=== PATIENT | female | born 1935 | race American Indian/Alaskan Native ===

== ENCOUNTER 2017-10-23 13:13 | Emergency (ER) | payer MEDICARE ==
--- NOTE | 2017-10-23 17:05 | Event Note ---
Date: 10/23/17 Patient is an 82-year-old female fell down and tripped today complaints of headache was sent over from her PCP for low blood pressure and had pain. I will order CT head and recheck blood pressure.
--- NOTE | 2017-10-23 17:35 | Cat Scan Report ---
FINAL REPORT EXAM: CT HEAD/BRAIN WO CON HISTORY: head pain TECHNIQUE: CT examination of the head without IV contrast PRIORS: None. FINDINGS: No acute air-fluid level visualized in the included air-filled sinuses. Bone windows demonstrate no acute fracture. There is ventricular and sulcal prominence compatible with global cerebrocortical atrophy. Low attenuation regions in the cerebral white matter, while nonspecific, are present and usually attributed to chronic ischemic gliosis. It can occur secondary to the normal aging process, hypertension, or arterial sclerotic vascular disease. The differential includes demyelination in the appropriate clinical setting. The brain contains no mass, mass effect, hemorrhage, or acute infarct. There is no extra-axial intracranial bleed or brain bleed. There is no midline shift. CSF density lesions in the anterior aspect and posterior aspect of the right basal ganglia, left caudate head, left external capsule, right external capsule, as well as lateral aspect of the left basal ganglia are most compatible with chronic lacunar infarcts. Largest is in the anterior right basal ganglia. IMPRESSION: No acute CVA, intracranial bleed, or brain mass CSF density lesions most compatible with chronic lacunar infarcts bilaterally
--- NOTE | 2017-10-23 19:11 | Emergency Department Report ---
ED Fall HPI - General Chief Complaint: Fall Stated Complaint: LOW BLOOD PRESSURE Time Seen by Provider: 10/23/17 18:28 Source: patient Mode of arrival: Wheelchair - History of Present Illness Initial Comments: This is a 82 y.o. female that presents with a knot on left side of head from a fall last week. Patient reports falling last Sunday at home. She went to get her hair done the next day and no one noticed a bump on her head. She was coming hair and noticed something felt different. Her daughter thought it would be smart to f/u with someone and brought her in here. Denies LOC, lightheadedness, SOB, chest pain, numbness, and tingling. She can feel pain with touch but other than that, it is unnoticeable. Complaint: fall -: week(s) (1) Fall From: standing When Fall Occurred: # days [employer] (6) Fall Witnessed: no Place Fall Occurred: home Loss of Consciousness: none Prolonged Down Time?: no Symptoms Prior to Fall: none Location: head (left front side) Severity: mild Severity scale (0 -10): 2 Quality: aching (to touch) Context: tripped/slipped Associated Symptoms: denies - Related Data Home Medications Medication Instructions Recorded Confirmed Last Taken Furosemide 40 mg PO DAILY 07/18/13 12/15/15 12/14/15 Lisinopril 20 mg PO DAILY 07/18/13 12/15/15 12/14/15 Trazodone HCl [traZODone] 50 mg PO QDAY 07/18/13 12/15/15 12/14/15 Previous Rx's Medication Instructions Recorded Last Taken Type Aspirin EC [Aspirin Enteric Coated 81 mg PO QDAY #15 tablet 12/18/15 Unknown Rx TAB] Carvedilol [Coreg] 12.5 mg PO BID #30 tablet 12/18/15 Unknown Rx Hydralazine HCl [Apresoline TAB] 50 mg PO Q8HR #45 tab 12/18/15 Unknown Rx Pantoprazole [Protonix TAB] 40 mg PO QDAY #15 tablet 12/18/15 Unknown Rx Simvastatin [Zocor TAB] 20 mg PO QHS #15 tablet 12/18/15 Unknown Rx Spironolactone [Aldactone] 25 mg PO QDAY #15 tablet 12/18/15 Unknown Rx Allergies Allergy/AdvReac Type Severity Reaction Status Date / Time No Known Allergies Allergy Verified 12/14/15 17:42 ED Review of Systems ROS: Stated complaint: LOW BLOOD PRESSURE Other details as noted in HPI Constitutional: denies: chills, fever ENT: denies: ear pain, throat pain Respiratory: denies: cough, shortness of breath, wheezing Cardiovascular: denies: chest pain, palpitations Gastrointestinal: denies: abdominal pain, nausea, diarrhea Skin: other (tender bump on left side of head). denies: rash, lesions Neurological: denies: headache, weakness, paresthesias ED Past Medical Hx - Past Medical History Hx Hypertension: Yes Hx Heart Attack/AMI: Yes Hx Congestive Heart Failure: Yes Hx GERD: Yes Hx Liver Disease: No Hx Renal Disease: No Hx Sickle Cell Disease: No Hx Asthma: No Hx COPD: No Additional medical history: CHOLESTEROL - Surgical History Hx Internal Defibrillator: Yes Additional Surgical History: LEFT KNEE REPLACEMENT. HYSTERECTOMY. GLAUCOMA. - Social History Smoking Status: Never Smoker Substance Use Type: None - Medications Home Medications: Home Medications Medication Instructions Recorded Confirmed Last Taken Type Furosemide 40 mg PO DAILY 07/18/13 12/15/15 12/14/15 History Lisinopril 20 mg PO DAILY 07/18/13 12/15/15 12/14/15 History Trazodone HCl [traZODone] 50 mg PO QDAY 07/18/13 12/15/15 12/14/15 History Aspirin EC [Aspirin Enteric Coated 81 mg PO QDAY #15 tablet 12/18/15 Unknown Rx TAB] Carvedilol [Coreg] 12.5 mg PO BID #30 tablet 12/18/15 Unknown Rx Hydralazine HCl [Apresoline TAB] 50 mg PO Q8HR #45 tab 12/18/15 Unknown Rx Pantoprazole [Protonix TAB] 40 mg PO QDAY #15 tablet 12/18/15 Unknown Rx Simvastatin [Zocor TAB] 20 mg PO QHS #15 tablet 12/18/15 Unknown Rx Spironolactone [Aldactone] 25 mg PO QDAY #15 tablet 12/18/15 Unknown Rx ED Physical Exam - General Limitations: No Limitations - Head Head exam: Present: atraumatic, other (1 cm nodule, tender to touch on left lateral head) - Respiratory Respiratory exam: Present: normal lung sounds bilaterally. Absent: respiratory distress - Cardiovascular Cardiovascular Exam: Present: regular rate, normal rhythm. Absent: systolic murmur, diastolic murmur, rubs, gallop - GI/Abdominal GI/Abdominal exam: Present: soft, normal bowel sounds - Neurological Exam Neurological exam: Present: alert, oriented X3, normal gait - Skin Skin exam: Present: warm, dry, intact, normal color. Absent: rash ED Course Vital Signs 10/23/17 14:11 Temperature 98 F Pulse Rate 85 Respiratory 18 Rate Blood Pressure 110/68 O2 Sat by Pulse 97 Oximetry ED Medical Decision Making - Radiology Data Radiology results: report reviewed, image reviewed IMPRESSION: No acute CVA, intracranial bleed, or brain mass CSF density lesions most compatible with chronic lacunar infarcts bilaterally - Medical Decision Making This is a 82 y.o. female that presents with a bump to left side of head. History of migraines. Patient is stable and was examined by me. CT of head obtained and dictated by radiologist. Patient notified of results of benign cyst. Signs of distress noted. Given toradol, zofran, and normal saline 1L bolus once in ER. Follow up with PCP and have repeat CT in 6 months. Continue current medication for migraines. Patient can't recall the name. States will get refills from PCP. No further questions noted by the patient. Discharged home in stable condition. Follow up with PCP in 24-72 hours. Critical care attestation.: If time is entered above; I have spent that time in minutes in the direct care of this critically ill patient, excluding procedure time. ED Disposition Clinical Impression: Fall as cause of accidental injury at home as place of occurrence Qualifiers: Encounter type: initial encounter Qualified Code(s): W19.XXXA - Unspecified fall, initial encounter; Y92.009 - Unspecified place in unspecified non- institutional (private) residence as the place of occurrence of the external cause Contusion Qualifiers: Encounter type: initial encounter Contusion area: head Contusion of head detail : scalp Qualified Code(s): S00.03XA - Contusion of scalp, initial encounter Disposition: - TO HOME OR SELFCARE Is pt being admited?: No Does the pt Need Aspirin: No Condition: Stable Instructions: Scalp Contusion in Adults (ED), Fall Prevention for Older Adults (ED) Additional Instructions: Remove all area rugs to prevent risk of falling. Use walker or cane to aid in walking. Monitor size and color of hematoma on head. If it is getting larger or not changing in size, follow up with primary care provider or return to ER. Follow up with primary care provider in 2-3 days. [facility]] - 3-5 Days [facility] [Provider Group] - 3-5 Days [facility] [Provider Group] - 3-5 Days Time of Disposition: 19:21 Print Language: CAPE VERDEAN
[2017-10-23 19:31] VITALS: BP 114/88
== END 2017-10-23 19:30 | disposition home or self-care (01) ==
LOC: ED 13:13
DX: S00.03XA Contusion of scalp, initial encounter (principal); I11.0 Hypertensive heart disease with heart failure; I50.9 Heart failure, unspecified; K21.9 Gastro-esophageal reflux disease without esophagitis; I25.2 Old myocardial infarction; Z96.652 Presence of left artificial knee joint; Z90.710 Acquired absence of both cervix and uterus; W01.0XXA Fall on same level from slipping, tripping and stumbling without subsequent striking against object, initial encounter; Y93.89 Activity, other specified; Y99.8 Other external cause status; Y92.009 Unspecified place in unspecified non-institutional (private) residence as the place of occurrence of the external cause
CPT/HCPCS: 70450

== ENCOUNTER 2017-12-12 15:47 | Inpatient (IN) | payer MEDICARE ==
[2017-12-12] MEDS ORDERED: NACL 0.9% 500 ML 500 ML ONE (16:42)
[2017-12-12] MEDS ORDERED: NACL 0.9% 500 ML 500 ML IV ONE (16:43)
[2017-12-12 17:21] LABS: Basophils % (Auto) 0.5 % (0.0-1.8); Eosinophils % (Auto) 0.3 % (0.0-4.3); Hematocrit 44.2 % (30.3-42.9); Hemoglobin 14.8 gm/dl (10.1-14.3); Lymphocytes # (Auto) 0.8 K/mm3 (1.2-5.4); Lymphocytes % (Auto) 13.4 % (13.4-35.0); Mean Corpuscular HGB Conc 34 % (30-34); Mean Corpuscular Hemoglobin 31 pg (28-32); Mean Corpuscular Volume 93 fl (79-97); Monocytes # (Auto) 0.3 K/mm3 (0.0-0.8); Monocytes % (Auto) 4.5 % (0.0-7.3); Platelet Count 297 K/mm3 (140-440); Red Blood Count 4.76 M/mm3 (3.65-5.03); Red Cell Distribution Width 16.5 % (13.2-15.2)
[2017-12-12 17:30] LABS: INR 2.73 (0.87-1.13)
[2017-12-12 17:33] LABS: Calcium 8.4 mg/dL (8.4-10.2)
--- NOTE | 2017-12-12 18:11 | XRay Report ---
FINAL REPORT EXAM: XR CHEST 1V AP HISTORY: sob TECHNIQUE: Chest portable upright PRIORS: Comparison is December 14, 2015 FINDINGS: Left ICD/pacemaker again identified lead wires intact and unchanged in position. Sternotomy wires are noted. No confluent pulmonary infiltrate identified. No pleural fluid collection seen. Pulmonary vasculature is unremarkable IMPRESSION: Pacemaker/AICD No acute pulmonary findings
--- NOTE | 2017-12-12 18:19 | Emergency Department Report ---
ED General Adult HPI - General Chief complaint: Weakness Stated complaint: NOT FEELING WELL Time Seen by Provider: 12/12/17 16:26 Source: family Mode of arrival: Wheelchair Limitations: No Limitations - History of Present Illness Initial comments: Pt is a 82 yo female with dementia here for weakness that the daughter noted today. - Related Data Home Medications Medication Instructions Recorded Confirmed Last Taken Furosemide 40 mg PO DAILY 07/18/13 12/12/17 12/14/15 Trazodone HCl [traZODone] 50 mg PO DAILY 07/18/13 12/12/17 12/14/15 Albuterol Sulfate [Proventil Hfa] 6.7 gm PO Q6H PRN 12/05/17 12/12/17 Unknown Aspirin EC [Aspirin Enteric Coated 81 mg PO DAILY 12/05/17 12/12/17 Unknown TAB] Diclofenac Sodium [Voltaren] 2 gm TP QID 12/05/17 12/12/17 Unknown Fluticasone [Flonase] 50 mcg INHALATION BID PRN 12/05/17 12/12/17 Unknown ISOSORBIDE MONOnitrate [Imdur ER] 30 mg PO DAILY 12/05/17 12/12/17 Unknown Ipratropium/Albuterol Sulfate 3 ml PO Q6H 12/05/17 12/12/17 Unknown [DUONEB *Not for PRN Use*] Latanoprost 0.005% 1 drop OU QPM 12/05/17 12/12/17 Unknown Omeprazole 40 mg PO DAILY 12/05/17 12/12/17 Unknown Potassium Chloride [Klor-Con 10] 10 meq PO DAILY 12/05/17 12/12/17 Unknown Sacubitril/Valsartan [Entresto 24 24 - 26 mg PO BID 12/05/17 12/12/17 Unknown mg-26 mg Tablet] Simvastatin [Zocor] 40 mg PO DAILY 12/05/17 12/12/17 Unknown Warfarin Sodium [Coumadin] 2 - 2.5 mg PO DAILY 12/05/17 12/12/17 Unknown guaiFENesin [Guaifenesin] 300 mg PO TID PRN 12/05/17 12/12/17 Unknown Previous Rx's Medication Instructions Recorded Last Taken Type Carvedilol [Coreg] 12.5 mg PO BID #30 tablet 12/18/15 Unknown Rx Prednisone [predniSONE 10 mg 10 mg PO .TAPER #1 tab.ds.pk 12/09/17 Unknown Rx (6-Day Pack, 21 Tabs)] Allergies Allergy/AdvReac Type Severity Reaction Status Date / Time No Known Allergies Allergy Verified 12/12/17 15:57 ED Review of Systems ROS: Stated complaint: NOT FEELING WELL Other details as noted in HPI ED Past Medical Hx - Past Medical History Hx Hypertension: Yes Hx Heart Attack/AMI: Yes Hx Congestive Heart Failure: Yes Hx GERD: Yes Hx Liver Disease: No Hx Renal Disease: No Hx Sickle Cell Disease: No Hx Asthma: No Hx COPD: Yes Additional medical history: CHOLESTEROL - Surgical History Hx Pacemaker: Yes Hx Internal Defibrillator: Yes Hx Cholecystectomy: Yes Additional Surgical History: LEFT KNEE REPLACEMENT. HYSTERECTOMY. GLAUCOMA. - Social History Smoking Status: Former Smoker Substance Use Type: None - Medications Home Medications: Home Medications Medication Instructions Recorded Confirmed Last Taken Type Furosemide 40 mg PO DAILY 07/18/13 12/12/17 12/14/15 History Trazodone HCl [traZODone] 50 mg PO DAILY 07/18/13 12/12/17 12/14/15 History Carvedilol [Coreg] 12.5 mg PO BID #30 tablet 12/18/15 12/12/17 Unknown Rx Albuterol Sulfate [Proventil Hfa] 6.7 gm PO Q6H PRN 12/05/17 12/12/17 Unknown History Aspirin EC [Aspirin Enteric Coated 81 mg PO DAILY 12/05/17 12/12/17 Unknown History TAB] Diclofenac Sodium [Voltaren] 2 gm TP QID 12/05/17 12/12/17 Unknown History Fluticasone [Flonase] 50 mcg INHALATION BID PRN 12/05/17 12/12/17 Unknown History ISOSORBIDE MONOnitrate [Imdur ER] 30 mg PO DAILY 12/05/17 12/12/17 Unknown History Ipratropium/Albuterol Sulfate 3 ml PO Q6H 12/05/17 12/12/17 Unknown History [DUONEB *Not for PRN Use*] Latanoprost 0.005% 1 drop OU QPM 12/05/17 12/12/17 Unknown History Omeprazole 40 mg PO DAILY 12/05/17 12/12/17 Unknown History Potassium Chloride [Klor-Con 10] 10 meq PO DAILY 12/05/17 12/12/17 Unknown History Sacubitril/Valsartan [Entresto 24 24 - 26 mg PO BID 12/05/17 12/12/17 Unknown History mg-26 mg Tablet] Simvastatin [Zocor] 40 mg PO DAILY 12/05/17 12/12/17 Unknown History Warfarin Sodium [Coumadin] 2 - 2.5 mg PO DAILY 12/05/17 12/12/17 Unknown History guaiFENesin [Guaifenesin] 300 mg PO TID PRN 12/05/17 12/12/17 Unknown History Prednisone [predniSONE 10 mg 10 mg PO .TAPER #1 tab.ds.pk 12/09/17 12/12/17 Unknown Rx (6-Day Pack, 21 Tabs)] ED Physical Exam - General Limitations: No Limitations ED Course Vital Signs 12/12/17 12/12/17 12/12/17 15:57 16:07 16:16 Temperature 97.5 F L Pulse Rate 86 80 81 Respiratory 18 24 21 Rate Blood Pressure 60/30 85/55 85/55 Blood Pressure [Left] O2 Sat by Pulse 95 Oximetry 12/12/17 12/12/17 12/12/17 16:30 16:45 17:00 Temperature Pulse Rate 77 84 81 Respiratory 18 26 H 28 H Rate Blood Pressure 75/52 79/53 79/53 Blood Pressure [Left] O2 Sat by Pulse 95 93 Oximetry 12/12/17 12/12/17 12/12/17 17:15 17:30 17:45 Temperature Pulse Rate 80 78 75 Respiratory 25 H 26 H 24 Rate Blood Pressure 82/57 83/59 96/61 Blood Pressure [Left] O2 Sat by Pulse 92 90 92 Oximetry 12/12/17 12/12/17 12/12/17 18:08 18:15 18:22 Temperature Pulse Rate 81 73 Respiratory 14 18 18 Rate Blood Pressure 96/61 101/70 Blood Pressure [Left] O2 Sat by Pulse 90 88 95 Oximetry 12/12/17 12/12/17 12/12/17 18:30 18:45 19:00 Temperature Pulse Rate 76 75 74 Respiratory 16 24 16 Rate Blood Pressure 96/73 98/74 93/63 Blood Pressure [Left] O2 Sat by Pulse 91 90 Oximetry 12/12/17 19:15 Temperature 98.1 F Pulse Rate 83 Respiratory 12 Rate Blood Pressure Blood Pressure 98/62 [Left] O2 Sat by Pulse 91 Oximetry ED Medical Decision Making - Lab Data Result diagrams: 12/12/17 16:53 12/12/17 16:53 Critical care attestation.: If time is entered above; I have spent that time in minutes in the direct care of this critically ill patient, excluding procedure time. ED Disposition Clinical Impression: Dehydration, Weakness Disposition: [id number] OP ADMIT IP TO THIS HOSP Condition: Stable
--- NOTE | 2017-12-12 18:29 | Cat Scan Report ---
FINAL REPORT EXAM: CT HEAD/BRAIN WO CON HISTORY: weakness TECHNIQUE: CT head without contrast PRIORS: None. FINDINGS: No acute intra-axial or extra-axial hemorrhage is identified. There is no evidence of midline shift or mass effect. The ventricles and sulci are within normal limits. Bolanos-white matter differentiation is intact. No acute parenchymal abnormalities seen. There are patchy and confluent hypodensities within the supratentorial white matter. There more focal hypodensity within right basal ganglia consistent with infarct. Bony calvarium is grossly intact. Visualized portions of the mastoids and paranasal sinuses are unremarkable. IMPRESSION: Chronic small vessel white matter ischemic change and chronic ischemic changes with remote basal ganglia infarct on the right. No acute abnormality
[2017-12-12 22:38] LABS: Bacteria,Urine 2+ /HPF (Negative); Bilirubin,Urine NEG (Negative); Blood,Urine SM (Negative); Color,Urine Yellow (Yellow); Protein,Urine <15 mg/dL mg/dL (Negative); Urobilinogen,Urine < 2.0 mg/dL (<2.0)
--- NOTE | 2017-12-13 06:47 | Event Note ---
Date: 12/12/17 12/12/17 See dictated H/p in reports Hypotension
[2017-12-13] MEDS ORDERED: DUONEB *Not for PRN Use IH SCH (07:00)
[2017-12-13] MEDS ORDERED: NON-FORMULARY (Prednisone [Prednisone 10 Mg (6-Day Pack, 21 Tabs)] 10 MG) PO SCH (07:00)
[2017-12-13 07:26] LABS: Hemoglobin 15.6 gm/dl (10.1-14.3); Mean Corpuscular HGB Conc 33 % (30-34); Mean Corpuscular Hemoglobin 31 pg (28-32); Mean Corpuscular Volume 93 fl (79-97); Platelet Count 266 K/mm3 (140-440); Red Blood Count 5.07 M/mm3 (3.65-5.03); Red Cell Distribution Width 16.4 % (13.2-15.2)
--- NOTE | 2017-12-13 07:39 | History and Physical Report ---
CHIEF COMPLAINT: Weakness since morning. HISTORY OF PRESENT ILLNESS: The patient is an 82-year-old female who was brought in by daughter for severe weakness since morning. The patient states that she feels very weak. Not feeling well. No fever. In the ER, the patient was noted to have blood pressure of 60/30 with a temperature of 97.5. No fever, no chills. No shortness of breath. Just weakness and some occasional nausea. PAST MEDICAL HISTORY: Significant for hypertension, coronary artery disease, acute MD in the past, congestive heart failure, COPD and cholesterol. PAST SURGICAL HISTORY: Significant for left knee replacement, hysterectomy, glaucoma, internal defibrillator, currently had a cholecystectomy. SOCIAL HISTORY: Former smoker, stopped smoking many years ago. No substance abuse. FAMILY HISTORY: Significant for hypertension. CURRENT MEDICATIONS: On the chart. REVIEW OF SYSTEMS: Significant for feeling weak, very low blood pressure in the Emergency Room of 60/30. PHYSICAL EXAMINATION: GENERAL: Elderly female, lying comfortably in bed. VITAL SIGNS: Blood pressure 60/30 initially. Improved to 79/53 at the time of my examination. Pulse is 81, respirations are 28. HEENT: Unremarkable. Pupils equal and reactive. NECK: Supple, no lymphadenopathy, no thyromegaly. LUNGS: Clear to auscultation and percussion. Good air entry. CARDIOVASCULAR: S1, S2 heard. No gallop, no murmur, no rub. Apical impulse in left fifth intercostal space and midclavicular line. ABDOMEN: Soft and benign. No hepatosplenomegaly. No guarding, no rigidity. Hernial orifices are normal. EXTREMITIES: Good pedal pulses. No pedal edema. CENTRAL NERVOUS SYSTEM: Alert and oriented x 4, nonfocal exam. LABORATORY DATA: Significant for white count of 6300, hematocrit of 44.2, hemoglobin of 14.8, BUN and creatinine of 52 and 1.3. Sodium is 137. Urine wbc's 38. Lactic acid is 1.6, normal. Magnesium is 2.4. ASSESSMENT AND PLAN: 1. Hypotension, probably secondary to sepsis and urinary tract infection. IV fluids for now. The patient did not have hypotension before. 2. Sepsis, high possibility secondary to urinary tract infection because of the hypotension. Lactic acid is not high. IV Rocephin pending the blood cultures. 3. Congestive heart failure. Continue Entresto b.i.d. Hold Lasix for the time being. 4. Gastroesophageal reflux disease. Continue omeprazole or PPIs. 5. COPD. Continue DuoNeb. 6. Hypertension. We will hold the Coreg for the time being. 7. Anticoagulation. Continue Coumadin 2.5 daily. 8. Depression. Continue trazodone 50 mg daily. 9. Hyperlipidemia. Continue simvastatin 40 mg p.o. daily. 10. Deep venous thrombosis prophylaxis. Continue heparin 5000 q.12h. In summary, the patient has hypotension may be secondary to sepsis and urinary tract infection. Lactic acid is not high. Continue Rocephin pending cultures. JOB# [id number] VSOscar/NTS
[2017-12-13 07:50] LABS: Alanine Aminotransferase 7 units/L (7-56); Albumin 3.2 g/dL (3.9-5); BUN/Creatinine Ratio 54; Basophils % (Auto) 0.3 % (0.0-1.8); Blood Urea Nitrogen 43 mg/dL (7-17); Calcium 8.6 mg/dL (8.4-10.2); Eosinophils % (Auto) 0.5 % (0.0-4.3); Hemolysis Index 73; Lymphocytes # (Auto) 1.5 K/mm3 (1.2-5.4); Lymphocytes % (Auto) 17.2 % (13.4-35.0); Monocytes # (Auto) 0.3 K/mm3 (0.0-0.8); Monocytes % (Auto) 3.9 % (0.0-7.3)
--- NOTE | 2017-12-13 08:45 | Consultation ---
History of Present Illness - Reason for Consult Consult date: 12/13/17 acute renal failure - History of Present Illness The patient is a 82 YO AAF with medical history significant for HTN, CAD, COPD, GERD, CHF and Dementia who was brought into the ER by her daughter for evaluation of generalized weakness. Her initial BP was around 60/30 and the labs were significant for creatinine of 1.3. Patient was not able to provide any history and there was no family member at the bedside. BP and creatinine level are better today. Past History Past Medical History: acute MS, COPD, GERD, heart failure, hypertension, other ( dementia) Medications and Allergies Allergies Allergy/AdvReac Type Severity Reaction Status Date / Time No Known Allergies Allergy Verified 12/12/17 15:57 Home Medications Medication Instructions Recorded Confirmed Last Taken Type Furosemide 40 mg PO DAILY 07/18/13 12/12/17 12/14/15 History Trazodone HCl [traZODone] 50 mg PO DAILY 07/18/13 12/12/17 12/14/15 History Carvedilol [Coreg] 12.5 mg PO BID #30 tablet 12/18/15 12/12/17 Unknown Rx Albuterol Sulfate [Proventil Hfa] 6.7 gm PO Q6H PRN 12/05/17 12/12/17 Unknown History Aspirin EC [Aspirin Enteric Coated 81 mg PO DAILY 12/05/17 12/12/17 Unknown History TAB] Diclofenac Sodium [Voltaren] 2 gm TP QID 12/05/17 12/12/17 Unknown History Fluticasone [Flonase] 50 mcg INHALATION BID PRN 12/05/17 12/12/17 Unknown History ISOSORBIDE MONOnitrate [Imdur ER] 30 mg PO DAILY 12/05/17 12/12/17 Unknown History Ipratropium/Albuterol Sulfate 3 ml PO Q6H 12/05/17 12/12/17 Unknown History [DUONEB *Not for PRN Use*] Latanoprost 0.005% 1 drop OU QPM 12/05/17 12/12/17 Unknown History Omeprazole 40 mg PO DAILY 12/05/17 12/12/17 Unknown History Potassium Chloride [Klor-Con 10] 10 meq PO DAILY 12/05/17 12/12/17 Unknown History Sacubitril/Valsartan [Entresto 24 24 - 26 mg PO BID 12/05/17 12/12/17 Unknown History mg-26 mg Tablet] Simvastatin [Zocor] 40 mg PO DAILY 12/05/17 12/12/17 Unknown History Warfarin Sodium [Coumadin] 2 - 2.5 mg PO DAILY 12/05/17 12/12/17 Unknown History guaiFENesin [Guaifenesin] 300 mg PO TID PRN 12/05/17 12/12/17 Unknown History Prednisone [predniSONE 10 mg 10 mg PO .TAPER #1 tab.ds.pk 12/09/17 12/12/17 Unknown Rx (6-Day Pack, 21 Tabs)] Active Meds: Active Medications Acetaminophen (Tylenol) 650 mg PO Q4H PRN PRN Reason: Pain MILD(1-3)/Fever >100.5/PEREZ Albuterol/Ipratropium (Duoneb *Not For Prn Use*) 1 ampul IH Q6H MAXIMINO Aspirin (Halfprin Ec) 81 mg PO DAILY MAXIMINO Fluticasone Propionate (Flonase) 50 mcg NS BID PRN PRN Reason: Shortness Of Breath Furosemide (Lasix) 40 mg PO DAILY MAXIMINO Guaifenesin (Robitussin) 300 mg PO TID PRN PRN Reason: Cough Sodium Chloride (Nacl 0.9% 1000 Ml) 1,000 mls @ 100 mls/hr IV DIRECT MAXIMINO Ceftriaxone Sodium 2 gm/ (Sodium Chloride) 20 mls @ 20 mls/10 min IV Q24HR MAXIMINO ; Protocol Isosorbide Mononitrate (Imdur) 30 mg PO DAILY MAXIMINO Latanoprost (Latanoprost 0.005%) drops OU QPM MAXIMINO Miscellaneous Medication (Diclofenac Sodium [Voltaren]) 2 gm TP QID MAXIMINO Miscellaneous Medication (Omeprazole [Omeprazole]) 40 mg PO DAILY MAXIMINO Miscellaneous Medication (Potassium Chloride [Klor-Con 10]) 10 meq PO DAILY MAXIMINO Miscellaneous Medication (Prednisone [Prednisone 10 Mg (6-Day Pack, 21 Tabs)]) 10 mg PO .TAPER MAXIMINO Miscellaneous Medication (Sacubitril/Valsartan [Entresto 24 Mg-26 Mg Tablet]) 24 - 26 mg PO BID MAXIMINO Miscellaneous Medication (Simvastatin [Zocor]) 40 mg PO DAILY MAXIMINO Miscellaneous Medication (Trazodone Hcl [Trazodone]) 50 mg PO DAILY [facility] Morphine Sulfate (Morphine) 2 mg IV Q4H PRN PRN Reason: Pain, Moderate (4-6) Ondansetron HCl (Zofran) 4 mg IV Q8H PRN PRN Reason: Nausea And Vomiting Oxycodone/Acetaminophen (Percocet 5/325) 1 tab PO Q6H PRN PRN Reason: Pain, Moderate (4-6) Sodium Chloride (Sodium Chloride Flush Syringe 10 Ml) 10 ml IV BID MAXIMINO Sodium Chloride (Sodium Chloride Flush Syringe 10 Ml) 10 ml IV PRN PRN PRN Reason: LINE FLUSH Review of Systems ROS unobtainable: due to mental status Exam - Vital Signs Vital signs: Vital Signs Temp Pulse Resp BP Pulse Ox 97.5 F L 86 18 60/30 95 12/12/17 15:57 12/12/17 15:57 12/12/17 15:57 12/12/17 15:57 12/12/17 15:57 - General Appearance General appearance: well-developed, appears stated age, other (no distress) EENT: ATNC, PERRL, mucous membranes moist, hearing intact, vision intact Neck: Present: neck supple, trachea midline Respiratory: Clear to Ascultation Heart: regular, S1S2, no murmurs Gastrointestinal: Present: normoactive bowel sounds. Absent: tenderness, distended Integumentary: no rash, warm and dry Neurologic: no focal deficit, no asterixis, confused, disoriented Musculoskeletal: Present: other (no edema) Psychiatric: cooperative Results - Lab Results 12/13/17 07:00 12/13/17 07:00 Most recent lab results Calcium 8.6 mg/dL (8.4-10.2) 12/13/17 07:00 Magnesium 2.40 mg/dL (1.7-2.3) H 12/12/17 17:02 Assessment and Plan 1. Acute kidney injury: Hemodynamic HALLEY. Renal function is better. Continue IV fluids. Hold diuretics and ACEI / ARB for now. Avoid NSAIDs. 2. Hypotension: BP is better. 3. Volume depletion: Continue IV fluids. 4. Dementia.
[2017-12-13] MEDS ORDERED: MORPHINE IV PRN (09:00)
[2017-12-13] MEDS ORDERED: ROBITUSSIN PO PRN (09:30)
[2017-12-13] MEDS ORDERED: ZOFRAN IV PRN (09:30)
[2017-12-13] MEDS ORDERED: TYLENOL PO PRN (09:30)
[2017-12-13] MEDS ORDERED: SODIUM CHLORIDE FLUSH SYRINGE 10 ML IV PRN (09:30)
[2017-12-13] MEDS ORDERED: PERCOCET 5/325 PO PRN (09:30)
[2017-12-13] MEDS: HALFPRIN EC PO SCH (09:38)
[2017-12-13] MEDS: K-DUR PO SCH (09:38)
[2017-12-13] MEDS: SODIUM CHLORIDE FLUSH SYRINGE 10 ML IV SCH ×2 (09:39→22:59)
[2017-12-13] MEDS: NACL 0.9% 1000 ML 1,000 ML IV SCH ×2 (09:57→20:30)
[2017-12-13] MEDS: cefTRIAXone 2 GM in NACL 0.9% 20 ML IV SCH (09:57)
[2017-12-13] MEDS ORDERED: NON-FORMULARY (Simvastatin [Zocor] 40 MG) PO SCH (10:00)
[2017-12-13] MEDS ORDERED: NON-FORMULARY (Omeprazole [Omeprazole] 40 MG) PO SCH (10:00)
[2017-12-13] MEDS ORDERED: NON-FORMULARY (Potassium Chloride [Klor-Con 10] 10 MEQ) PO SCH (10:00)
[2017-12-13] MEDS ORDERED: LASIX PO SCH (10:00)
[2017-12-13] MEDS ORDERED: SACUBITRIL PO SCH (10:00)
[2017-12-13] MEDS ORDERED: FLONASE NS PRN (10:00)
[2017-12-13] MEDS ORDERED: DICLOFENAC SODIUM 2 GM TP SCH (10:00)
[2017-12-13] MEDS ORDERED: TRAZODONE HCL 50 MG PO SCH (10:00)
[2017-12-13] MEDS ORDERED: VALSARTAN PO SCH (10:00)
--- NOTE | 2017-12-13 10:24 | Progress Note ---
Assessment and Plan Assessment and plan: Sepsis. Continue follow-up blood and urine cultures. Etiology secondary to UTI. Follow-up lactic acid levels. UTI. As above. Sepsis associated hypotension. Resolving with IV fluid hydration. Compensated systolic and diastolic CHF. Recent echocardiogram on 12/05/17 revealed EF 25-30% with also abnormal left ventricular diastolic filling consistent with impaired relaxation. Continue cautious IV fluid hydration given heart failure history. Acute kidney injury. Etiology secondary to acute kidney injury from sepsis/ hypotension. Continue IV fluid hydration. Alzheimer's dementia. COPD. Compensated. Hypertension. Continue to hold antihypertensive medications considering the hypotension. Hyperlipidemia. Resume medications. History Interval history: No new issues overnight. Hospitalist Physical - Constitutional Vitals: Temp Pulse Resp BP Pulse Ox 98.4 F 84 18 108/76 93 12/13/17 07:22 12/13/17 10:00 12/13/17 07:22 12/13/17 07:22 12/13/17 07:22 General appearance: Present: no acute distress, well-nourished - EENT Eyes: Present: PERRL, EOM intact ENT: hearing intact, clear oral mucosa, dentition normal - Neck Neck: Present: supple, normal ROM - Respiratory Respiratory effort: normal Respiratory: bilateral: CTA - Cardiovascular Rhythm: regular Heart Sounds: Present: S1 & S2. Absent: gallop, rub - Extremities Extremities: no ischemia, No edema, Full ROM - Abdominal General gastrointestinal: soft, non-tender, non-distended, normal bowel sounds - Integumentary Integumentary: Present: clear, warm, dry - Neurologic Neurologic: CNII-XII intact, moves all extremities Results - Labs CBC & Chem 7: 12/13/17 07:00 12/13/17 07:00 Labs: Laboratory Last Values WBC 8.8 K/mm3 (4.5-11.0) 12/13/17 07:00 RBC 5.07 M/mm3 (3.65-5.03) H 12/13/17 07:00 Hgb 15.6 gm/dl (10.1-14.3) H 12/13/17 07:00 Hct 47.0 % (30.3-42.9) H 12/13/17 07:00 MCV 93 fl (79-97) 12/13/17 07:00 MCH 31 pg (28-32) 12/13/17 07:00 MCHC 33 % (30-34) 12/13/17 07:00 RDW 16.4 % (13.2-15.2) H 12/13/17 07:00 Plt Count 266 K/mm3 (140-440) 12/13/17 07:00 Lymph % (Auto) 17.2 % (13.4-35.0) 12/13/17 07:00 [place] % (Auto) 3.9 % (0.0-7.3) 12/13/17 07:00 Eos % (Auto) 0.5 % (0.0-4.3) 12/13/17 07:00 Baso % (Auto) 0.3 % (0.0-1.8) 12/13/17 07:00 Lymph # 1.5 K/mm3 (1.2-5.4) 12/13/17 07:00 Wells # 0.3 K/mm3 (0.0-0.8) 12/13/17 07:00 Eos # 0.0 K/mm3 (0.0-0.4) 12/13/17 07:00 Baso # 0.0 K/mm3 (0.0-0.1) 12/13/17 07:00 Seg Neutrophils % 78.1 % (40.0-70.0) H 12/13/17 07:00 Seg Neutrophils # 6.7 K/mm3 (1.8-7.7) 12/13/17 07:00 PT 30.8 Sec. (12.2-14.9) H 12/12/17 17:02 INR 2.73 (0.87-1.13) H 12/12/17 17:02 APTT 38.0 Sec. (24.2-36.6) H 12/12/17 17:02 Sodium 140 mmol/L (137-145) 12/13/17 07:00 Potassium 4.0 mmol/L (3.6-5.0) 12/13/17 07:00 Chloride 98.4 mmol/L (98-107) 12/13/17 07:00 Carbon Dioxide 29 mmol/L (22-30) 12/13/17 07:00 Anion Gap 17 mmol/L 12/13/17 07:00 BUN 43 mg/dL (7-17) H 12/13/17 07:00 Creatinine 0.8 mg/dL (0.7-1.2) 12/13/17 07:00 Estimated GFR > 60 ml/min 12/13/17 07:00 BUN/Creatinine Ratio 54 % 12/13/17 07:00 Glucose 104 mg/dL (65-100) H 12/13/17 07:00 Hemoglobin A1c 6.2 % (4-6) H 12/13/17 07:00 Lactic Acid 1.60 mmol/L (0.7-2.0) 12/12/17 17:39 Calcium 8.6 mg/dL (8.4-10.2) 12/13/17 07:00 Magnesium 2.40 mg/dL (1.7-2.3) H 12/12/17 17:02 Total Bilirubin 0.60 mg/dL (0.1-1.2) 12/13/17 07:00 AST 13 units/L (5-40) 12/13/17 07:00 ALT 7 units/L (7-56) 12/13/17 07:00 Alkaline Phosphatase 36 units/L (35-129) 12/13/17 07:00 Troponin T < 0.010 ng/mL (0.00-0.029) 12/12/17 20:39 Total Protein 5.8 g/dL (6.3-8.2) L 12/13/17 07:00 Albumin 3.2 g/dL (3.9-5) L 12/13/17 07:00 Albumin/Globulin Ratio 1.2 % 12/13/17 07:00 Urine Color Yellow (Yellow) 12/12/17 22: Urine Turbidity Clear (Clear) 12/12/17 22: Urine pH 5.0 (5.0-7.0) 12/12/17 22: Ur Specific [place] 1.018 (1.003-1.030) 12/12/17: Urine Protein <15 mg/dl mg/dL (Negative) 12/12/17 22: Urine Glucose (UA) Neg mg/dL (Negative) 12/12/17 22: Urine Ketones Neg mg/dL (Negative) 12/12/17 22: Urine Blood Sm (Negative) 12/12/17 22: Urine Nitrite Neg (Negative) 12/12/17 22: Urine Bilirubin Neg (Negative) 12/12/17 22: Urine Urobilinogen < 2.0 mg/dL (<2.0) 12/12/17 22: Ur Leukocyte Esterase Lg (Negative) 12/12/17 22: Urine WBC (Auto) 38.0 /HPF (0.0-6.0) H 12/12/17 22: Urine RBC (Auto) 8.0 /HPF (0.0-6.0) 12/12/17 22: U Epithel Cells (Auto) 5.0 /HPF (0-13.0) 12/12/17 22: Urine Bacteria (Auto) 2+ /HPF (Negative) 12/12/17 22:
[2017-12-13] MEDS: DUONEB *Not for PRN Use IH SCH ×2 (15:08→21:55)
[2017-12-13] MEDS: IMDUR PO SCH (15:33)
[2017-12-13] MEDS ORDERED: NORCO 5/325 PO PRN (17:41)
[2017-12-13] MEDS ORDERED: LATANOPROST 0.005% OU SCH (18:00)
[2017-12-13] MEDS ORDERED: DELTASONE PO NR (18:00)
[2017-12-13] MEDS ORDERED: PRAVACHOL PO SCH (22:00)
[2017-12-13] MEDS ORDERED: DESYREL PO SCH (22:00)
[2017-12-14] MEDS: DUONEB *Not for PRN Use IH SCH ×3 (02:51→15:50)
[2017-12-14 06:15] LABS: Basophils % (Auto) 0.1 % (0.0-1.8); Eosinophils % (Auto) 0.4 % (0.0-4.3); Hematocrit 45.6 % (30.3-42.9); Hemoglobin 14.8 gm/dl (10.1-14.3); Lymphocytes # (Auto) 1.1 K/mm3 (1.2-5.4); Lymphocytes % (Auto) 16.3 % (13.4-35.0); Mean Corpuscular HGB Conc 33 % (30-34); Mean Corpuscular Hemoglobin 31 pg (28-32); Mean Corpuscular Volume 94 fl (79-97); Monocytes # (Auto) 0.2 K/mm3 (0.0-0.8); Monocytes % (Auto) 3.3 % (0.0-7.3); Platelet Count 268 K/mm3 (140-440); Red Blood Count 4.83 M/mm3 (3.65-5.03); Red Cell Distribution Width 16.4 % (13.2-15.2)
[2017-12-14] MEDS: NACL 0.9% 1000 ML 1,000 ML IV SCH (06:28)
[2017-12-14 06:33] LABS: Alanine Aminotransferase 6 units/L (7-56); Albumin 3.2 g/dL (3.9-5); BUN/Creatinine Ratio 38; Blood Urea Nitrogen 30 mg/dL (7-17); Calcium 8.3 mg/dL (8.4-10.2); Hemolysis Index 4
[2017-12-14] MEDS ORDERED: DELTASONE PO NR (08:00)
--- NOTE | 2017-12-14 08:49 | Discharge Summary ---
<ARSENIO CHATMAN - Last Filed: 12/14/17 08:42> Providers - Providers Date of Admission: 12/12/17 22:16 Attending physician: MURIEL PUCKETT 12/13/17 Consult to Case Management [CONS] Routine Services Needed at Discharge: Home Health Services Lead Burner Apprentice Notified:: mumtaz 12/13/17 07:01 Consult to Physician [CONS] Routine Comment: spoke to dr. melchor/ joaquim Consulting Provider: MERE MELCHOR Physician Instructions: Reason For Exam: HALLEY Primary care physician: MANAGER SAS Hospitalization Condition: Stable Hospital course: Patient is an 82-year-old woman who presented to the emergency department with severe weakness. She was hypotensive on admission with a blood pressure of 60/ 30 and temperature of 97.5. Patient was found to be septic which is likely secondary to a urinary tract infection present on admission. Patient was initiated on IVF and IV antibiotics , blood and urine cultures were ordered. Patient had acute kidney injury on admission and nephrology was consulted and nephrotoxic medications were held. Patient began to clinically improve and was medically stable for discharge. Patient will resume her home medications and will follow-up with primary care provider within 5 days of discharge. Discharge diagnoses Sepsis UTI Sepsis associated hypotension Compensated systolic and diastolic congestive heart failure Acute kidney injury Alzheimer's dementia COPD Hypertension Hyperlipidemia. Disposition: [facility] ([facility]) Time spent for discharge: 32 minutes Core Measure Documentation - Palliative Care Palliative Care/ Comfort Measures: Hospice Care - Core Measures Any of the following diagnoses?: none Exam - Constitutional Vitals: Temp Pulse Resp BP Pulse Ox 98.7 F 81 16 142/80 96 12/13/17 15:01 12/14/17 07:20 12/14/17 07:20 12/13/17 15:01 12/13/17 22:00 General appearance: Present: no acute distress, well-nourished - EENT Eyes: Present: PERRL ENT: hearing intact, clear oral mucosa - Neck Neck: Present: supple, normal ROM - Respiratory Respiratory effort: normal Respiratory: bilateral: CTA - Cardiovascular Heart Sounds: Present: S1 & S2. Absent: rub, click - Extremities Extremities: pulses symmetrical, No edema Peripheral Pulses: within normal limits - Abdominal General gastrointestinal: Present: soft, non-tender, non-distended, normal bowel sounds - Integumentary Integumentary: Present: clear, warm, dry - Musculoskeletal Musculoskeletal: gait normal, strength equal bilaterally - Psychiatric Psychiatric: appropriate mood/affect, intact judgment & insight - Neurologic Neurologic: CNII-XII intact, moves all extremities Plan Follow up with: PRIMARY CARE, [Primary Care Provider] - 3-5 Days Prescriptions: Levofloxacin [Levaquin TAB] 500 mg PO QDAY #4 tablet <MURIEL PUCKETT - Last Filed: 12/15/17 07:58> Providers - Providers Date of Admission: 12/12/17 22:16 Date of discharge: 12/14/17 Attending physician: MURIEL PUCKETT 12/13/17 Consult to Case Management [CONS] Routine Services Needed at Discharge: Home Health Services Lead Burner Apprentice Notified:: mumtaz 12/13/17 07:01 Consult to Physician [CONS] Routine Comment: spoke to dr. melchor/ joaquim Consulting Provider: MERE MELCHOR Physician Instructions: Reason For Exam: HALLEY Primary care physician: MANAGER SAS Hospitalization Hospital course: I saw and evaluated the patient. I agree with the findings and the plan of care as documented in the Nurse Practitioner's~note, with the following corrections and additions. Exam - Constitutional Vitals: Temp Pulse Resp BP Pulse Ox 98.7 F 68 14 103/68 98 12/14/17 13:48 12/14/17 13:51 12/14/17 13:48 12/14/17 13:48 12/14/17 13:51
--- NOTE | 2017-12-14 09:27 | Progress Note ---
Assessment and Plan 1. Acute kidney injury: Hemodynamic HALLEY. Renal function is better. 2. Hypotension: BP is better. 3. Volume depletion: Improving. 4. Dementia. D/w family members at the bedside. Subjective Date of service: 12/14/17 Interval history: Patient was seen and examined at the bedside. Objective - Vital Signs Vital signs: Vital Signs - 12hr 12/13/17 12/13/17 12/13/17 21:55 22:00 22:08 Pulse Rate 84 Pulse Rate [ 76 Apical] Pulse Rate [ 82 84 Posterior Upper Lobe] Respiratory 18 18 Rate [Posterior Upper Lobe] O2 Sat by Pulse 96 Oximetry 12/14/17 12/14/17 12/14/17 02:50 03:03 07:20 Pulse Rate Pulse Rate [ Apical] Pulse Rate [ 81 82 81 Posterior Upper Lobe] Respiratory 18 18 16 Rate [Posterior Upper Lobe] O2 Sat by Pulse Oximetry - General Appearance General appearance: well-developed, appears stated age, other (no distress) EENT: ATNC, PERRL Neck: supple Respiratory: Present: Clear to Ascultation Cardiology: regular, S1S2, no murmurs Gastrointestinal: normoactive bowel sounds, no tenderness, no distended Integumentary: no rash, warm and dry Neurologic: no focal deficit, no asterixis, confused, disoriented Musculoskeletal: other (no edema) - Lab 12/14/17 05:41 12/14/17 05:41 Most recent lab results Calcium 8.3 mg/dL (8.4-10.2) L 12/14/17 05:41 Phosphorus 3.00 mg/dL (2.5-4.5) 12/14/17 05:41 Magnesium 2.20 mg/dL (1.7-2.3) 12/14/17 05:41
[2017-12-14] MEDS ORDERED: PROTONIX PO SCH (10:00)
[2017-12-14] MEDS: IMDUR PO SCH (10:48)
[2017-12-14] MEDS: HALFPRIN EC PO SCH (10:49)
[2017-12-14] MEDS: SODIUM CHLORIDE FLUSH SYRINGE 10 ML IV SCH (10:49)
[2017-12-14] MEDS: K-DUR PO SCH (11:47)
[2017-12-14] MEDS: cefTRIAXone 2 GM in NACL 0.9% 20 ML IV SCH (11:48)
--- NOTE | 2017-12-14 13:01 | Query- Renal Failure ---
Dear ___Kameron Date:___12/14/2017 Proposal Analyst/CDS:___Allyssa Phone#:__[phone] Exercise your independent professional judgment when responding to query. Questions asked do not imply a particular answer is desired or expected. We greatly appreciate your clarification on this issue. Clinical Documentation States: 82 Year old female was admitted on 12/12/2017 for evaluation of generalized weakness. The Hospitalist (Dr. Melo) progress note on 12/13/2017 states "Acute kidney injury. Etiology secondary to acute kidney injury from sepsis/hypotension. Continue IV fluid hydration." Clinical Findings Show: Creatinine (12/12): 1.3 Please clarify if you mean: Acute Renal Failure with or due to: [ ] Tubular Necrosis [ ] Medullary Necrosis [ x] Vasomotor Nephropathy [ ] Shock Kidney [ ] Tubular Nephrosis [ ] Renal Tubular Stasis [ ] Cortical Necrosis [ ] Acute Renal Failure (unspecified) [ ] Lower Tubular Nephrosis [ ] Other: [ ] Not Applicable Present on Admission: [x ] Yes (Y) [ ] Clinically undeterminable (W) [ ] No (N) Please also document response in your Progress Notes and/or Discharge Summary and indicate if the condition was present on admission. MTDD
[2017-12-14 14:18] VITALS: BP 103/68
== END 2017-12-14 18:00 | disposition hospice, home (50) | DRG 871 ==
LOC: ED 15:47 → 2B-ACE 22:16
PROVIDERS: ADMIT Internal Medicine; ATTEND Hospitalist
DX: A41.9 Sepsis, unspecified organism (principal); N17.0 Acute kidney failure with tubular necrosis; N39.0 Urinary tract infection, site not specified; I50.42 Chronic combined systolic (congestive) and diastolic (congestive) heart failure; E86.0 Dehydration; I95.9 Hypotension, unspecified; I11.0 Hypertensive heart disease with heart failure; K21.9 Gastro-esophageal reflux disease without esophagitis; J44.9 Chronic obstructive pulmonary disease, unspecified; E78.00 Pure hypercholesterolemia, unspecified; Z96.652 Presence of left artificial knee joint; I25.10 Atherosclerotic heart disease of native coronary artery without angina pectoris; G30.9 Alzheimer's disease, unspecified; F02.80 Dementia in other diseases classified elsewhere, unspecified severity, without behavioral disturbance, psychotic disturbance, mood disturbance, and anxiety; E78.5 Hyperlipidemia, unspecified; Z79.82 Long term (current) use of aspirin; Z87.891 Personal history of nicotine dependence; Z95.810 Presence of automatic (implantable) cardiac defibrillator; Z90.710 Acquired absence of both cervix and uterus; Z79.01 Long term (current) use of anticoagulants; Z79.51 Long term (current) use of inhaled steroids; I25.2 Old myocardial infarction
CPT/HCPCS: 36415; 70450; 71045; 80048; 80053; 81001; 82140; 82550; 83036; 83735; 84100; 84484; 85025; 85610; 85730; 87040; 87086; 93005; 93010; 94640; 99406; A9270-GY; J0696; J7030; J7040